=== PATIENT | male | born 1985 | race Caucasian/White ===

== ENCOUNTER 2019-06-27 12:08 | Emergency (ER) | payer OTHER ==
[~2019-06-27] VITALS: Ht 162.6 cm; Wt 68.9 kg
[2019-06-27 12:22] VITALS: Ht 162.6 cm; Wt 68.9 kg
[2019-06-27 16:30] VITALS: BP 128/80
== END 2019-06-27 16:30 | disposition home or self-care (01) ==
LOC: ED 12:08
DX: S60.221A Contusion of right hand, initial encounter (principal); S60.414A Abrasion of right ring finger, initial encounter; L03.113 Cellulitis of right upper limb; W23.0XXA Caught, crushed, jammed, or pinched between moving objects, initial encounter; Y93.89 Activity, other specified; Y92.89 Other specified places as the place of occurrence of the external cause; Y99.8 Other external cause status